=== PATIENT | female | born 1975 | race Two or more races ===

== ENCOUNTER 2022-06-22 10:32 | Outpatient (CLI) | payer OTHER | END 2022-06-22 23:59 | disposition home or self-care (01) | LOC: LAB 10:32 | PROVIDERS: ATTEND Specialist | DX: Z01.812 Encounter for preprocedural laboratory examination (principal); U07.1 COVID-19 | CPT/HCPCS: U0003; C9803 ==

== ENCOUNTER 2022-07-07 08:00 | Outpatient (CLI) | payer OTHER | END 2022-07-07 23:59 | disposition home or self-care (01) | LOC: LAB 08:00 | PROVIDERS: ATTEND Specialist | DX: Z01.812 Encounter for preprocedural laboratory examination (principal); Z20.822 Contact with and (suspected) exposure to COVID-19 | CPT/HCPCS: U0003; C9803 ==

== ENCOUNTER 2022-07-14 05:55 | Day surgery (SDC) | payer OTHER ==
[2022-07-14] MEDS ORDERED: EPINEPHRINE (1:1000) 1 MG/ML AMPUL ONE (06:23)
[2022-07-14] MEDS ORDERED: BUPIVACAINE 0.5 % PF 150 MG/30 ML VIAL ONE (06:24)
[2022-07-14] MEDS ORDERED: methylPREDNISolone ACETATE 80 MG/ML VIAL ONE (06:24)
[2022-07-14] MEDS ORDERED: SCOPOLAMINE PATCH 1 MG/72HR TD ONE (06:36)
[2022-07-14] MEDS ORDERED: FENTANYL PF 100MCG/2ML AMPUL ONE (06:50)
== END 2022-07-14 10:00 | disposition home or self-care (01) ==
LOC: DS 05:55
PROVIDERS: ATTEND Specialist
DX: S83.272A Complex tear of lateral meniscus, current injury, left knee, initial encounter (principal); Z88.0 Allergy status to penicillin; X58.XXXA Exposure to other specified factors, initial encounter; Y93.89 Activity, other specified; Y92.89 Other specified places as the place of occurrence of the external cause; Y99.8 Other external cause status
CPT/HCPCS: 29881; 84703; J0690; J3490 ×2; J1040; J1100; J2704; J3010; J0330; J2405; J7030; A6253; A4217; J0171